=== PATIENT | female | born 1950 | race Caucasian/White ===

== ENCOUNTER 2017-10-25 06:31 | Day surgery (SDC) | payer MEDICARE ==
[2017-10-25] MEDS ORDERED: Lactated Ringer's 1,000 ML IV ONE (08:07)
[2017-10-25] MEDS ORDERED: Lidocaine Hydrochloride 5 ML INJ ONE (08:08)
[2017-10-25] MEDS ORDERED: Propofol 10 mg/ml Inj (20 ML) ONE (08:08)
--- NOTE | 2017-10-25 08:10 | CP.SDSHP ---
Same Day Surgery H & P - History Proposed Procedure: Colonoscopy Pre-Op Diagnosis: Screening - Previous Medical/Surgical History Endocrine/Metabolic: Diabetes Previous Surgical History: none - Allergies Allergies: Allergies DUST Allergy (Mild, Uncoded 10/25/17 06:54) CONGESTION SEASONAL Allergy (Mild, Uncoded 10/25/17 06:54) CONGESTION - Current Medications Current Medications: Metformin - Physical Exam General Appearance: wdwn nad Vital Signs: Vital Signs 10/25/17 07:12 Temperature 97.5 F L Pulse Rate 60 Respiratory 19 Rate Blood Pressure 135/94 H O2 Sat by Pulse 97 Oximetry Mental Status: Alert & Oriented x3 Heart: WNL Lungs: WNL GI: WNL - {Optional Preform as Required} Abdomen: WNL - Impression Impression: Screening for colorectal neoplasm Pt. Evaluated Today:Candidate for Anesthesia & Procedure: Yes - Date & Time Date: 10/25/17 Time: 08:10 Short Stay Discharge - Short Stay Discharge Admitting Diagnosis/Reason for Visit: SCREENING Disposition: HOME/ ROUTINE
[2017-10-25 08:41] VITALS: TEMP 98.7
[2017-10-25 09:08] VITALS: PULSE 60; RESP 12
[2017-10-25 09:10] VITALS: BP 155/73; O2SAT 99
== END 2017-10-25 09:42 | disposition home or self-care (01) ==
LOC: C.ENDO 06:31
PROVIDERS: ATTEND Internal Medicine Gastroenterology
DX: Z12.11 Encounter for screening for malignant neoplasm of colon (principal); K64.0 First degree hemorrhoids; E11.9 Type 2 diabetes mellitus without complications; E78.5 Hyperlipidemia, unspecified; Z98.890 Other specified postprocedural states; Z79.84 Long term (current) use of oral hypoglycemic drugs
CPT/HCPCS: 82948; G0121; J2704; J7120

== ENCOUNTER 2018-05-17 09:33 | Outpatient (CLI) | payer MEDICARE | END 2018-05-17 09:34 | disposition home or self-care (01) | LOC: C.MAMMO 09:33 | DX: Z12.31 Encounter for screening mammogram for malignant neoplasm of breast (principal); Z80.3 Family history of malignant neoplasm of breast ==